=== PATIENT | female | born 1980 | race Caucasian/White ===

== ENCOUNTER 2023-06-18 15:28 | Inpatient (IN) | payer MEDICAID, OTHER ==
[~2023-06-18] VITALS: Ht 144.8 cm; Wt 77.3 kg
[2023-06-18] MEDS: POTASSIUM CHLORIDE 20MEQ/PACKET PO NR (01:22)
[2023-06-18] MEDS: ACETAMINOPHEN 325MG TABLET PO STA (18:14)
[2023-06-18] MEDS: SODIUM CHLORIDE 0.9% 1,000 ML IV ONE (18:14)
[2023-06-18 18:25] LABS: MEAN CORPUSCULAR HGB CONC 35.2 g/dL (31.0-37.0); MEAN CORPUSCULAR VOLUME 96.5 fL (81.0-99.0); MEAN PLATELET VOLUME 7.7 fl (7.4-10.4); RED BLOOD CELL COUNT 1.41 mill/uL (4.2-5.4); RED CELL DISTRIBUTION WIDTH 34.9 % (11.6-14.6)
[2023-06-18 18:29] LABS: HEMATOCRIT. 13.6 % (36.0-48.0); HEMOGLOBIN. 4.8 g/dL (12.0-16.0); WHITE BLOOD COUNT 1.6 x1000/uL (4.5-11.0)
[2023-06-18 18:30] LABS: ALANINE AMINOTRANSFERASE 10 IU/L (10-49); ALBUMIN 2.1 g/dL (3.2-4.8); ASPARTATE AMINOTRANSFERASE 47 IU/L (<34); BILIRUBIN TOTAL 3.7 mg/dL (0.1-1.0); CALCIUM 6.9 mg/dL (8.7-10.4); CARBON DIOXIDE 20 mEq/L (21-32); CHLORIDE 112 mEq/L (98-107); CREATININE 0.5 mg/dL (0.6-1.0); DIFFERENTIAL COMMENT 1; GLUCOSE 99 mg/dL (70-105); PLATELET 49 x1000/uL (130-400); PROTEIN TOTAL 7.4 g/dL (6.0-8.3); SODIUM 137 mEq/L (136-145); TROPONIN I HIGH SENSITIVITY 6 ng/L (3.0-34)
[2023-06-18 18:38] LABS: POTASSIUM 2.8 mEq/L (3.5-5.1); UREA NITROGEN BLOOD < 5 mg/dL (9-23)
[2023-06-18 18:39] LABS: INR 1.7
[2023-06-18 18:52] LABS: NUCLEATED RED BLOOD CELLS 3 /100 WBC
[2023-06-18 18:53] LABS: HYPOCHROMASIA 2+; MICROCYTOSIS 2+; PLATELET ESTIMATE MARKEDLY DECREASED; TARGET CELLS 1+
[2023-06-18 19:44] LABS: LACTATE DEHYDROGENASE 486 IU/L (120-246)
[2023-06-18 19:50] LABS: D-DIMER 6.45 mg/L FEU (<0.50); INR 1.7; LACTIC ACID 2.4 mmol/L (0.4-2.0); PARTIAL THROMBOPLASTIN TIME 33.5 sec (23.4-31.0); PROTHROMBIN TIME 17.8 sec (9.6-11.0)
[2023-06-18] MEDS: POTASSIUM CHLORIDE 20MEQ/PACKET PO ONE (21:30)
[2023-06-18] MEDS: KCL 10MEQ/50ML PREMIX 50 ML IV ONE (23:00)
[2023-06-18 23:58] LABS: CLARITY URINE CLEAR (CLEAR); COLOR URINE DARK YELLOW (YELLOW); GLUCOSE URINE NEGATIVE (NEGATIVE); KETONES URINE NEGATIVE (NEGATIVE); LEUKOCYTE ESTERASE URINE NEGATIVE (NEGATIVE); NITRITE URINE NEGATIVE (NEGATIVE); OCCULT BLOOD URINE NEGATIVE (NEGATIVE); PH URINE 6.5 (4.5-8.0); PROTEIN URINE TRACE (NEGATIVE); SPECIFIC GRAVITY URINE 1.017 (1.005-1.030)
[2023-06-19 01:06] LABS: BACTERIA URINE NONE SEEN; RBC URINE NONE SEEN /hpf (0-2); SQUAMOUS EPITHELIAL CELL URINE NONE SEEN /lpf (RARE/1+); WBC URINE NONE SEEN /hpf (0-2)
[2023-06-19] MEDS: CEFTRIAXONE 2GM/50ML 50 ML IV ONE (01:55)
[2023-06-19 06:37] LABS: HEMOGLOBIN 6.7 g/dL (12.0-16.0)
[2023-06-19] MEDS: ACETAMINOPHEN 650MG/20.3ML UDC PO PRN (08:32)
[2023-06-19 14:30] VITALS: BP 130/66; PULSE 92; RESP 27; TEMP 97.7
[2023-06-19 14:45] VITALS: BP 130/66; PULSE 92; RESP 27; TEMP 97.7
[2023-06-19 16:00] VITALS: BP 131/74; PULSE 89; RESP 25; TEMP 97.7
[2023-06-19 18:00] VITALS: BP 134/71; PULSE 93; RESP 19
[2023-06-19] MEDS: ACETAMINOPHEN 325MG TABLET PO PRN (18:02)
[2023-06-19] MEDS: ONDANSETRON HCL 4MG/2ML INJ IV PRN (18:05)
[2023-06-19 20:00] VITALS: BP 129/76; PULSE 90; RESP 18; TEMP 97.9
[2023-06-19 20:48] LABS: HEPATITIS B SURFACE ANTIGEN NEGATIVE (Negative); HEPATITIS C AB NON REACTIVE (Neg) (Negative)
[2023-06-19 22:00] VITALS: BP 133/79; PULSE 90; RESP 18
[2023-06-20] VITALS (10 sets, daily range): BP systolic 98–131; BP diastolic 68–87; PULSE 82–96; RESP 17–29; TEMP 97–97.7; O2SAT 100
[2023-06-20 07:31] LABS: CALCIUM 6.8 mg/dL (8.7-10.4); CARBON DIOXIDE 20 mEq/L (21-32); CHLORIDE 113 mEq/L (98-107); CREATININE 0.5 mg/dL (0.6-1.0); GLUCOSE 76 mg/dL (70-105); POTASSIUM 3.1 mEq/L (3.5-5.1); SODIUM 139 mEq/L (136-145)
[2023-06-20 07:48] LABS: UREA NITROGEN BLOOD < 5 mg/dL (9-23)
[2023-06-20 08:48] LABS: HEMATOCRIT. 22.8 % (36.0-48.0); HEMOGLOBIN. 7.2 g/dL (12.0-16.0); MEAN CORPUSCULAR HEMOGLOBIN 30.6 pg (28.0-32.0); MEAN CORPUSCULAR HGB CONC 31.6 g/dL (31.0-37.0); MEAN CORPUSCULAR VOLUME 96.6 fL (81.0-99.0); RED BLOOD CELL COUNT 2.36 mill/uL (4.2-5.4); RED CELL DISTRIBUTION WIDTH 28.9 % (11.6-14.6); WHITE BLOOD COUNT 2.1 x1000/uL (4.5-11.0)
[2023-06-20 08:59] LABS: DIFFERENTIAL COMMENT 1
[2023-06-20] MEDS: POTASSIUM CHLORIDE 20MEQ TABLET SR PO NR (10:08)
[2023-06-20 14:17] LABS: PLATELET 40 x1000/uL (130-400)
[2023-06-20 14:18] LABS: GIANT PLATELETS FEW; MEAN PLATELET VOLUME 8.4 fl (7.4-10.4)
[2023-06-20] MEDS: PHYTONADIONE 10MG/ML INJ SUBCUT SCH (14:56)
[2023-06-20 17:00] LABS: IRON 96 ug/dL (50-170); TOTAL IRON BINDING CAPACITY 236 ug/dl (250-425)
[2023-06-20 22:14] LABS: ANISOCYTOSIS 2+; PLATELET ESTIMATE MARKEDLY DECREASED
[2023-06-20 22:18] LABS: HYPOCHROMASIA 1+; OVALOCYTES 1+
== END 2023-06-20 21:01 | disposition home or self-care (01) | DRG 660 ==
LOC: ER 15:28 → MICUSO 20:44 → EDBEDREQSVC 20:55 → EDBEDREQTM 20:55 → EDBEDREQ 20:55 → 5EST 06-19 15:32
PROVIDERS: ADMIT Internal Medicine; ATTEND Internal Medicine
PROC: 30233N1 Transfusion of Nonautologous Red Blood Cells into Peripheral Vein, Percutaneous Approach (ICD-10-PCS; principal; 2023-06-18)
DX: D61.818 Other pancytopenia (principal); K74.60 Unspecified cirrhosis of liver; M32.9 Systemic lupus erythematosus, unspecified; E87.6 Hypokalemia; I10 Essential (primary) hypertension; Z85.05 Personal history of malignant neoplasm of liver; Z98.891 History of uterine scar from previous surgery
CPT/HCPCS: 36415; 71045; 76705; 80048; 80053; 81003; 83540; 83550; 83605; 83615; 84484; 85014; 85018; 85025; 85379; 85384; 86705; 86850; 86900; 86920; 87340; 93005; 99291; J0696; J2405; J3430; J3480; J7030; P9016

== ENCOUNTER 2023-07-20 03:09 | Emergency (ER) | payer MEDICAID ==
[~2023-07-20] VITALS: Ht 152.4 cm; Wt 82.0 kg
[2023-07-20 03:28] VITALS: O2SAT 100
[2023-07-20 03:36] LABS: BASOPHILS % 0.1 % (0.0-2.0); DIFFERENTIAL COMMENT 0; EOSINOPHILS % 0.2 % (0.0-5.0); HEMATOCRIT. 24.1 % (36.0-48.0); HEMOGLOBIN. 7.4 g/dL (12.0-16.0); LYMPHOCYTES % 8.1 % (20.0-50.0); MEAN CORPUSCULAR HEMOGLOBIN 33.9 pg (28.0-32.0); MEAN CORPUSCULAR HGB CONC 30.9 g/dL (31.0-37.0); MEAN CORPUSCULAR VOLUME 109.9 fL (81.0-99.0); MEAN PLATELET VOLUME 7.6 fl (7.4-10.4); MONOCYTES % 7.8 % (2.0-8.0); NEUTROPHILS % 83.8 % (40.0-76.0); PLATELET 66 x1000/uL (130-400); RED BLOOD CELL COUNT 2.19 mill/uL (4.2-5.4); RED CELL DISTRIBUTION WIDTH 21.4 % (11.6-14.6)
[2023-07-20 03:41] LABS: CHLORIDE 111 mEq/L (98-107); POTASSIUM 3.7 mEq/L (3.5-5.1); SODIUM 134 mEq/L (136-145)
[2023-07-20 03:42] LABS: CARBON DIOXIDE 16 mEq/L (21-32)
[2023-07-20 03:47] LABS: CREATININE 0.4 mg/dL (0.6-1.0); GLUCOSE 126 mg/dL (70-105)
[2023-07-20 03:48] LABS: UREA NITROGEN BLOOD 12 mg/dL (9-23)
[2023-07-20 03:49] LABS: ALANINE AMINOTRANSFERASE 35 IU/L (10-49); ALBUMIN 2.2 g/dL (3.2-4.8); ASPARTATE AMINOTRANSFERASE 49 IU/L (<34)
[2023-07-20 03:50] LABS: BILIRUBIN TOTAL 2.8 mg/dL (0.1-1.0)
[2023-07-20 08:45] LABS: CLARITY URINE CLOUDY (CLEAR); COLOR URINE DARK YELLOW (YELLOW); GLUCOSE URINE NEGATIVE (NEGATIVE); KETONES URINE NEGATIVE (NEGATIVE); LEUKOCYTE ESTERASE URINE TRACE (NEGATIVE); NITRITE URINE NEGATIVE (NEGATIVE); OCCULT BLOOD URINE NEGATIVE (NEGATIVE); PROTEIN URINE NEGATIVE (NEGATIVE); SPECIFIC GRAVITY URINE 1.017 (1.005-1.030)
[2023-07-20 09:09] LABS: AMORPHOUS SEDIMENT URINE 1+ /lpf; SQUAMOUS EPITHELIAL CELL URINE 1+ /lpf (RARE/1+)
[2023-07-20 09:11] LABS: BACTERIA URINE 1+
[2023-07-20 09:13] LABS: RBC URINE 0-2 /hpf (0-2); WBC URINE 0-2 /hpf (0-2)
[2023-07-20 13:00] VITALS: BP 149/90; PULSE 88; RESP 17; TEMP 98.7
[2023-07-20] MEDS: ACETAMINOPHEN 500MG TABLET PO ONE (13:00)
[2023-07-20] MEDS ORDERED: IOHEXOL-300 100 ML BOTTLE ONE (17:44)
== END 2023-07-20 15:13 | disposition home or self-care (01) ==
LOC: ER 03:28
DX: R10.84 Generalized abdominal pain (principal); I95.9 Hypotension, unspecified
CPT/HCPCS: 80053; 81003; 81025; 85025; 36415; 74177; 99285; Q9967; Z7610